=== PATIENT | female | born 1930 | race Caucasian/White ===

== ENCOUNTER 2016-09-22 11:58 | Inpatient (IN) | payer MEDICARE, BC ==
[~2016-09-22] VITALS: Ht 154.9 cm; Wt 84.1 kg
[~2016-09-22 11:58] MED LIST: BACITRACIN15 G1 TP; CALCIUM CARBON500 MG PO; CLEOCIN HCL150 MG PO; CULTURELLE1 CAP PO; DELTASONE DPS10 MG PO; HYDROCODONE 5MG/5 MG PO; INVANZ1 GM IV; KLOR-CON M2020 ME1 PO; LASIX DPS20 MG PO; MACROBID100 MG PO; MIRALAX PACKET17 GM PO; NORVASC2.5 MG PO; PEPCID DPS20 MG PO; PROTONIX40 MG PO; SENOKOT DPS8.6 MG PO; SYNTHROID DP0.175 MG PO; VESICARE5 MG PO; ZOFRAN4 MG PO; ZYLOPRIM-DPS100 MG PO; ZYVOX600 MG PO
--- NOTE | 2016-09-27 08:23 | DS ---
ADMIT: 09/22/2016 RM/LOC: 503 [facility] MR#: [id number] [address] [address] [place] [address] Discharge Summary SEX: F AGE: 86 : 1930 ADMISSION DATE: 09/22/2016 DISCHARGE DATE: 09/25/2016 CONSULTATIONS: None. PROCEDURES: None. FINAL DIAGNOSES: 1. 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 2. Encephalopathy secondary to #1. 3. History of aortic valve stenosis status post TAVR (transcatheter aortic valve replacement). 4. Atrial fibrillation, on chronic anticoagulation. 5. Chronic kidney disease, stage III. 6. Overall weakness and debility. 7. Hearing loss. REASON FOR ADMISSION: The patient is an 86-year-old female, not acting like herself. Found to have a UTI in the ER. Mildly dehydrated. Admitted for further stabilization. HOSPITAL COURSE: The patient was given IV antibiotics. Awaited cultures ultimately showed very resistant E. coli. Arrangements were made for IV antibiotics at the snf. She was rehydrated. Overall, she improved other than she continued to have some issues with her hearing loss. [place] safe and stable for discharge to prison facility where she normally resides with close followup in clinic. Please see discharge medications for full discharge medications. She will have an INR a week from now. She will have a goal of 2 L of oral intake. Cut down her Lasix from 80 to 20 mg daily. Had great intake assessment with faxing over in three weeks. She can have thin liquids in room and nectar at meals only. Lenin Oreilly MD/ leela JOB #: [id number] CC: Lenin Oreilly MD, Attending Physician Lenin Oreilly MD, Family Physician
--- NOTE | 2016-09-28 08:44 | ER ---
ADMIT: 09/22/2016 RM/LOC: 503 [facility] MR#: [id number] [address] [place], [place] [address] [place], [place] [address] Emergency Room Report SEX: F AGE: 86 : 1930 DATE: 09/22/2016 TIME: 1158 hours. Please refer to my T-sheet for complete H and P. Briefly, the patient is an 86-year-old whom the daughter brings in and says she is just not herself, especially today. Recent urinary infection. She normally is more talkative. She is non ambulatory but she is just not herself. She feels weak and she is not answering questions appropriately. She has a history of , pneumonia in the past, UTI. She is a DNR and she was on recent antibiotics for a bladder infection. PHYSICAL EXAMINATION: VITAL SIGNS: Blood pressure 142/49, pulse 50, respirations 14, temp 98, and sat 99%. GENERAL: She is sluggish to respond, but alert, is confused slightly. Nonfocal otherwise. EMERGENCY DEPARTMENT COURSE: We did the whole sepsis pathway. Head CT was negative. In addition, chest x-ray, no acute disease. CBC normal. Chemistries normal except BUN 41, glucose 145, and creatinine 1.9. Procalcitonin was normal. Cardiac enzymes negative. INR was 1.52. Blood cultures x2 were sent. Lactate was 2.2. She received a whole liter of saline while here. We did start antibiotics. Her urine came back with 736 white cells, many white blood cell clumps, 3+ leukocyte esterase, it was sent for culture. I talked to Dr. Oreilly, will admit to the hospital. ASSESSMENT: 1. Early sepsis. 2. Urinary tract infection. 3. Confusion. PLAN: Admit to the hospital. Raad Harding MD/ jad JOB #: [id number] CC: Lenin Oreilly MD, Attending Physician Lenin Oreilly MD, Family Physician
--- NOTE | 2016-10-05 11:55 | HP ---
ADMIT: 09/22/2016 RM/LOC: 503 [facility] MR#: [id number] 2620 [facility] [address] [place] [id number] [place] [address] History and Physical SEX: F AGE: 86 : 1930 DATE OF SERVICE: 09/22/2016 CHIEF COMPLAINT: Altered mental status. HISTORY OF PRESENT ILLNESS: The patient is a pleasant 86-year-old female, well known to me from clinic, who at the detention has had increasing confusion. Not feeling well. Was started on Macrobid for UTI a day ago. Sent over to the emergency room. The patient really cannot provide much more history. She is pleasantly confused more than her baseline. Daughter accompanies her. Has not been eating or drinking as well. Denies any chest pain. No new joint pains. No nausea. No vomiting. Does endorse that she does not feel hungry and not eating or drinking well. PAST MEDICAL HISTORY: Significant for: 1. Aortic stenosis, status post TAVR. 2. Recurrent UTI. 3. Chronic kidney disease, stage 3. 4. Atrial fibrillation, on chronic anticoagulation. 5. Mild dementia. 6. History of gout. SOCIAL HISTORY: Lives over at a detention, long-term care. Daughter is very involved in care. Recently lost her this last year. Nonsmoker. Originally from [place]. FAMILY HISTORY: Reviewed and noncontributory. ALLERGIES: PLEASE SEE LIST. MEDICATIONS: Reviewed. Please see list. PHYSICAL EXAMINATION: VITAL SIGNS: Reviewed at time of ER, please see list. GENERAL: She is alert. Confused somewhat more than usual. Hard of hearing. HEENT: Normocephalic, atraumatic. TMs visualized bilaterally, they are within normal limits. No cerumen impaction. Throat, dry mucous membranes. NECK: No lymphadenopathy. Soft and supple. Trachea midline. LUNGS: Clear to auscultation bilaterally. No wheezes, rales, or rhonchi. HEART: Regular rate and rhythm. No murmurs, rubs, or gallops. ABDOMEN: Soft, nontender, nondistended. Bowel sounds present. EXTREMITIES: No cyanosis or clubbing. She has trace 1+ edema in bilateral lower extremities. Better than baseline. SKIN: No rashes noted. NEUROLOGICAL: No focal deficits noted. Cranial nerves II through XII grossly intact. LABORATORY DATA: Reviewed. Creatinine 1.9, BUN 41. INR is 1.5. Hemoglobin 12.4, white count 7.4. Potassium 3.9. ADMIT: 09/22/2016 RM/LOC: 503 [facility] MR#: [id number] [address] [place] [phone] [place] [address] History and Physical SEX: F AGE: 86 : 1930 ASSESSMENT: 1. Urinary tract infection. 2. Encephalopathy secondary to urinary tract infection. 3. Atrial fibrillation, on chronic anticoagulation. 4. Chronic kidney disease, stage 3. 5. History of aortic stenosis with replacement. PLAN: At this point in time, we will treat her with broad-spectrum antibiotics given her history of drug-resistant organisms in the past. Hydrate her back up again. Monitor in the hospital. The patient and daughter are agreeable to plan. Lenin Oreilly MD/ jad JOB #: [id number] CC: Lenin Oreilly MD, Attending Physician Lenin Oreilly MD, Family Physician
[2016-10-14] MEDS ORDERED: TEARS NATURAL D15 ML OU (19:22)
[2016-10-14] MEDS ORDERED: RETAINE HPMC 0.10 ML OU (19:23)
[2016-10-14] MEDS ORDERED: BENADRYL CRM, 230 GM TP (19:23)
[2016-10-14] MEDS ORDERED: COLACE-DPS100 MG PO (19:24)
[2016-10-14] MEDS ORDERED: CLEOCIN HCL150 MG PO (19:24)
[2016-10-14] MEDS ORDERED: COUMADIN DPS2 MG PO ×2 (19:25)
[2016-10-14] MEDS ORDERED: DUONEB DPS3 ML IH (19:26)
[2016-10-14] MEDS ORDERED: CRANBERRY450 M2 PO (19:26)
[2016-10-14] MEDS ORDERED: FEOSOL-DPS325 MG PO (19:27)
[2016-10-14] MEDS ORDERED: EUCERIN CREME57 GM TP (19:27)
[2016-10-14] MEDS ORDERED: MILK OF MAGNESI10 ML PO (19:27)
[2016-10-14] MEDS ORDERED: DAILY MULTIPLE1 EAC1 PO (19:28)
[2016-10-14] MEDS ORDERED: SYNTHROID200 MCG PO (19:28)
[2016-10-14] MEDS ORDERED: PROTONIX40 MG PO (19:28)
[2016-10-14] MEDS ORDERED: PROBIOTIC1 EAC1 PO (19:28)
[2016-10-14] MEDS ORDERED: [UNRECOGNIZED DRUG - CODE] TP (19:28)
[2016-10-14] MEDS ORDERED: SENOKOT DPS8.6 MG PO (19:28)
[2016-10-14] MEDS ORDERED: ZOLOFT DPS50 MG PO (19:29)
[2016-10-14] MEDS ORDERED: TYLENOL DPS325 MG PO (19:29)
[2016-10-14] MEDS ORDERED: ZYLOPRIM-DPS100 MG PO (19:29)
[2016-10-14] MEDS ORDERED: VITAMIN D31000 UNIT PO (19:29)
[2016-10-14] MEDS ORDERED: ZYVOX600 MG PO (19:30)
[2016-10-14] MEDS ORDERED: KEPPRA DPS500 MG PO (19:30)
== END 2016-09-25 15:40 | DRG 689 ==
LOC: ER 11:58 → 5MS 15:31
PROVIDERS: ADMIT Internal Medicine
DX: N39.0 Urinary tract infection, site not specified (principal); G93.40 Encephalopathy, unspecified; E86.0 Dehydration; I48.91 Unspecified atrial fibrillation; N18.3 Chronic kidney disease, stage 3 (moderate); H91.90 Unspecified hearing loss, unspecified ear; B96.20 Unspecified Escherichia coli [E. coli] as the cause of diseases classified elsewhere; E03.9 Hypothyroidism, unspecified; Z16.24 Resistance to multiple antibiotics; Z95.2 Presence of prosthetic heart valve; Z79.01 Long term (current) use of anticoagulants; Z66 Do not resuscitate

== ENCOUNTER 2016-10-05 21:49 | Inpatient (IN) | payer MEDICARE, BC ==
[~2016-10-05] VITALS: Ht 154.9 cm; Wt 85.1 kg
--- NOTE | 2016-10-06 19:22 | ER ---
ADMIT: 10/05/2016 RM/LOC: ER [facility] MR#: [id number] [address] [facility] [address] [place], [place] [address] [place], [place] [address] Emergency Room Report SEX: F AGE: 86 : 1930 DATE: 10/05/2016 HISTORY OF PRESENT ILLNESS: She is a DNR. She is an 86-year-old female, who was brought in by her family stating that she had declining status. Apparently, they went to Dr. Oreilly's office today, they evaluated her urine which had been diagnosed as having a urinary tract infection, but they do not think that the antibiotic is being very helpful. Family says that she has had some more confusion and just does not act herself. PAST MEDICAL HISTORY: Includes CHF, CKD, aortic stenosis to which she takes Coumadin for, hypothyroidism, and anemia. MEDICATIONS: Include: 1. Warfarin. 2. DuoNeb. 3. Ferrous sulfate. 4. Furosemide. She is on; 1. Macrobid. 2. Potassium chloride. 3. Pantoprazole. 4. Levothyroxine. 5. Vitamin D. 6. Sertraline. 7. Allopurinol. ALLERGIES: SHE HAS ALLERGY TO PENICILLIN AND SULFA. PHYSICAL EXAMINATION: VITAL SIGNS: Blood pressure 160/64, with a heart rate of 71, respirations 14, O2 saturations on room air 98%, temperature is 98.6. GENERAL: Slightly confused, alert, very pleasant female. HEENT: Normal inspection. Oral mucosa is very dry. NECK: Supple. CHEST: Nontender. CVS: Regular in rate and rhythm. ABDOMEN: Nontender. SKIN: Good color and turgor. EXTREMITIES: Nontender. NEURO: Oriented x2, to person and place. Mood and affect are appropriate. LABORATORY DATA AND IMAGING: Sepsis screen was done and sepsis protocol ADMIT: 10/05/2016 RM/LOC: ER [facility] MR#: [id number] [facility] [address] [address] [place] [place] [address] Emergency Room Report SEX: F AGE: 86 : 1930 started without the fluid resuscitation. Her labs; WBCs 16,000, lactic acid is 1.5, with a GFR of 34. Her BUN is 29, glucose 117, creatinine is 1.4, BNP 24,988, INR is 2.40, PT 25.7, PTT 43.4, troponin 0.836. UA pending. Chest x- ray; cardiomegaly, no pneumonia. CLINICAL IMPRESSION: 1. Dehydration. 2. Cardiac enzyme elevation. 3. Chronic kidney disease. 4. Urinary tract infection. Dr. Tejada contacted for Dr. Oreilly, orders received. The patient awaiting room placement. CHANG Chan / Dave Ann MD / modl JOB #: [id number] CC: Dave Ann MD, Attending Physician Lenin Oreilly MD, Family Physician
--- NOTE | 2016-10-09 09:35 | HP ---
ADMIT: 10/06/2016 RM/LOC: 401 [facility] MR#: [id number] [address] [address] [place] [address] History and Physical SEX: F AGE: 86 : 1930 DATE OF SERVICE: CHIEF COMPLAINT: Confusion and fever. HISTORY OF PRESENT ILLNESS: The patient is an 86-year-old female, very well known to me from clinic, who actually I saw yesterday in clinic. Over the last few days has had increasing confusion. Not acting like herself. Some visual hallucinations. This worsened last night. She had coughing and choking spell last night on medications. Had a fever to 100.1, subsequently brought to the emergency room. The patient had an acute worsening of her white count. Just not feeling well. Admitted for further stabilization. Patient reports this morning, she just does not feel well. Cannot elaborate much more. Did have visual hallucinations again last night. Denies any shortness of breath. No palpitations. No chest pain. No abdominal pain reported at this time. PAST MEDICAL HISTORY: 1. Chronic kidney disease, stage III. 2. History of aortic valve replacement, status post TAVR. 3. Atrial fibrillation, on chronic anticoagulation. 4. Hypertension. 5. Diastolic heart failure chronic. 6. Gout history. 7. Hypothyroidism. FAMILY HISTORY: Significant for heart disease, hypertension, and diabetes. SOCIAL HISTORY: Lives over skilled, in the last year. Her daughter is very involved in her care, and is at bedside. REVIEW OF SYSTEMS: As per HPI. Otherwise, completely reviewed and negative. MEDICATIONS: She is on: 1. Potassium. 2. Multivitamin. 3. Probiotic. 4. Pantoprazole. 5. Senna. 6. Levothyroxine. 7. Acetaminophen. 8. VESIcare. 9. Vitamin D. 10.Sertraline. 11.Allopurinol. 12.Coumadin. 13.Furosemide. 14.Ferrous sulfate. 15.Nystatin powder. Please see list for full details. ADMIT: 10/06/2016 RM/LOC: 401 [facility] MR#: [id number] [address] [address] [place] [address] History and Physical SEX: F AGE: 86 : 1930 PHYSICAL EXAMINATION: VITAL SIGNS: Temperature 97.3, pulse 68, respiratory rate 18, blood pressure 147/91, O2 saturation 100% on room air. GENERAL: She is alert and oriented to person. Seems to be confused. Seems to having continued hallucinations this morning. Very much not like herself. HEENT: Normocephalic and atraumatic. Pupils equal, round, and reactive to light and accommodation. Extraocular muscles intact. Very dry mucous membranes. Along the left border of her tongue, she has a roughly 1.5 x 1 cm oval-shaped ulceration. Some associated swelling and hyperemia around it. Also, an area it looks like biting of her lip in the left with some swelling associated. Otherwise, intraorally no other lesions. NECK: No lymphadenopathy. Trachea midline. LUNGS: Clear to auscultation bilaterally with very faint rales at left base which is her baseline. Otherwise, clear. HEART: Regular rate and rhythm. Grade 1/6 systolic ejection murmur. PMI 5th intercostal space. ABDOMEN: Soft, nontender, nondistended. Bowel sounds present. EXTREMITIES: No cyanosis, clubbing, or edema. MUSCULOSKELETAL: 5/5 strength in all 4 extremities. NEUROLOGICAL: No focal deficits noted. Cranial nerves II through XII grossly intact. LABORATORY AND X-RAY DATA: Her UA ordered and pending. Creatinine 1.4, Mag 1.8, INR 2.4, troponin 0.8, it came down this morning to 0.68. White count 16, hemoglobin 12.2, platelets 203. Sodium 141, potassium 4.4. Procalcitonin is negative. Chest x-ray showed cardiomegaly without edema. ASSESSMENT: 1. Urinary tract infection. 2. Encephalopathy secondary to metabolic likely infectious etiology. 3. Positive troponin, equivocal. 4. Chronic kidney disease, stage III. 5. History of aortic valve, status post TAVR. 6. Atrial fibrillation on anticoagulation. 7. Questionable aspiration. ADMIT: 10/06/2016 RM/LOC: 401 [facility] MR#: [id number] [address] [place] [phone] [place] [address] History and Physical SEX: F AGE: 86 : 1930 8. Dysphagia. 9. DNR/DNI status. PLAN: At this point in time, we will give antibiotics, gentle rehydration. Watch her electrolytes. Await for urine culture. Recently had a drug- resistant organism and treated with broad-spectrum antibiotics she was still on. Concern for a resistant organism again. We will see how she does in the next couple of days. Family reasonable and understands that if she does not improve, will likely pursue hospice as we discussed yesterday in the clinic, although at this time, we will look for reversible causes. Her troponin is slightly elevated, seems equivocal, and we will proceed further at this time as she is otherwise asymptomatic. Lenin Oreilly MD/ jad JOB #: [id number] CC: Lenin J Oreilly, Attending Physician Lenin Oreilly, Family Physician
--- NOTE | 2016-10-13 15:49 | DS ---
ADMIT: 10/06/2016 RM/LOC: 401 [facility] MR#: [id number] [address] [address] [place] [address] Discharge Summary SEX: F AGE: 86 : 1930 ADMISSION DATE: 10/06/2016 DISCHARGE DATE: 10/12/2016 CONSULTATIONS: None. FINAL DIAGNOSES: 1. VRE (Vancomycin-Resistant Enterococci) UTI (urinary tract infection). 2. Encephalopathy secondary to infection. 3. Chronic kidney disease, stage III. 4. Mild dementia. 5. Overactive bladder. 6. New onset seizure disorder. 7. Gastroesophageal reflux disease. 8. History of aortic stenosis, status post TAVR (transcatheter aortic valve replacement). 9. History of chronic diastolic heart failure without acute exacerbation. 10.Elevated troponin, equivocal. 11.Dysphagia requiring modified diet. REASON FOR ADMISSION: The patient is an 78-year-old female with increasing weakness, change of mental status worsened, mild fever at the SNF. Sent to the emergency room. Admitted for further stabilization. HOSPITAL COURSE: The patient was admitted. She clearly was not herself. Was started on broad-spectrum antibiotics. Ultimately showed it was VRE and antibiotics were changed. She slowly and steadily improved after this point over the course of about 4 days. Back near her baseline. Her oral intake improved. She did have a witnessed grand mal seizure while hospitalized. Started on Keppra. Did not have any recurrence of this. Otherwise, her mental status improved and she was felt safe and stable for discharge to skilled. DISCHARGE INSTRUCTIONS: Please see discharge MAR which I reviewed. She will see me back in 10 days. She will have an INR in six days. Notably, she will be now on Keppra as well as a 10 day course of Zyvox. Lenin Oreilly MD/ leela JOB #: [id number] CC: Lenin Oreilly MD, Attending Physician Lenin Oreilly MD, Family Physician
[2016-10-14] MEDS ORDERED: TEARS NATURAL D15 ML OU (19:22)
[2016-10-14] MEDS ORDERED: RETAINE HPMC 0.10 ML OU (19:23)
[2016-10-14] MEDS ORDERED: BENADRYL CRM, 230 GM TP (19:23)
[2016-10-14] MEDS ORDERED: COLACE-DPS100 MG PO (19:24)
[2016-10-14] MEDS ORDERED: CLEOCIN HCL150 MG PO (19:24)
[2016-10-14] MEDS ORDERED: COUMADIN DPS2 MG PO ×2 (19:25)
[2016-10-14] MEDS ORDERED: CRANBERRY450 M2 PO (19:26)
[2016-10-14] MEDS ORDERED: DUONEB DPS3 ML IH (19:26)
[2016-10-14] MEDS ORDERED: FEOSOL-DPS325 MG PO (19:27)
[2016-10-14] MEDS ORDERED: EUCERIN CREME57 GM TP (19:27)
[2016-10-14] MEDS ORDERED: MILK OF MAGNESI10 ML PO (19:27)
[2016-10-14] MEDS ORDERED: [UNRECOGNIZED DRUG - CODE] TP (19:28)
[2016-10-14] MEDS ORDERED: PROBIOTIC1 EAC1 PO (19:28)
[2016-10-14] MEDS ORDERED: SYNTHROID200 MCG PO (19:28)
[2016-10-14] MEDS ORDERED: DAILY MULTIPLE1 EAC1 PO (19:28)
[2016-10-14] MEDS ORDERED: SENOKOT DPS8.6 MG PO (19:28)
[2016-10-14] MEDS ORDERED: PROTONIX40 MG PO (19:28)
[2016-10-14] MEDS ORDERED: ZYLOPRIM-DPS100 MG PO (19:29)
[2016-10-14] MEDS ORDERED: ZOLOFT DPS50 MG PO (19:29)
[2016-10-14] MEDS ORDERED: TYLENOL DPS325 MG PO (19:29)
[2016-10-14] MEDS ORDERED: VITAMIN D31000 UNIT PO (19:29)
[2016-10-14] MEDS ORDERED: KEPPRA DPS500 MG PO (19:30)
[2016-10-14] MEDS ORDERED: ZYVOX600 MG PO (19:30)
== END 2016-10-12 11:39 | DRG 689 ==
LOC: ER 21:49 → 4PCU 10-06 00:25
PROVIDERS: ADMIT Internal Medicine
DX: N39.0 Urinary tract infection, site not specified (principal); G93.41 Metabolic encephalopathy; I48.91 Unspecified atrial fibrillation; G40.409 Other generalized epilepsy and epileptic syndromes, not intractable, without status epilepticus; R13.10 Dysphagia, unspecified; I13.0 Hypertensive heart and chronic kidney disease with heart failure and stage 1 through stage 4 chronic kidney disease, or unspecified chronic kidney disease; I50.32 Chronic diastolic (congestive) heart failure; F03.90 Unspecified dementia, unspecified severity, without behavioral disturbance, psychotic disturbance, mood disturbance, and anxiety; N18.3 Chronic kidney disease, stage 3 (moderate); N32.81 Overactive bladder; E03.9 Hypothyroidism, unspecified; E86.0 Dehydration; K21.9 Gastro-esophageal reflux disease without esophagitis; M10.9 Gout, unspecified; D63.1 Anemia in chronic kidney disease; K14.0 Glossitis; Z66 Do not resuscitate; Z79.01 Long term (current) use of anticoagulants; Z95.2 Presence of prosthetic heart valve; Z16.21 Resistance to vancomycin